=== PATIENT | male | born 1990 | race African-American/Black ===

== ENCOUNTER 2016-05-05 09:56 | Emergency (ER) | payer OTHER ==
[2016-05-05] MEDS ORDERED: methylPREDNISolone Sod Succ/PF 125 MG/2 ML VIAL ONE (10:16)
[2016-05-05] MEDS ORDERED: Sulfameth/Trimethoprim DS 800-160mg TAB ONE (10:16)
== END 2016-05-05 10:32 | disposition home or self-care (01) ==
LOC: BURERS 09:56
DX: J01.90 Acute sinusitis, unspecified (principal); F90.9 Attention-deficit hyperactivity disorder, unspecified type; F31.9 Bipolar disorder, unspecified
CPT/HCPCS: 96372; J2930

== ENCOUNTER 2017-03-04 20:04 | Emergency (ER) | payer OTHER ==
[2017-03-04] MEDS ORDERED: Benzonatate 100 MG CAP ONE (20:47)
[2017-03-04] MEDS ORDERED: Ondansetron ODT 4 MG TAB ONE (20:47)
== END 2017-03-04 20:53 | disposition home or self-care (01) ==
LOC: BURERS 20:04
DX: J20.9 Acute bronchitis, unspecified (principal); F90.9 Attention-deficit hyperactivity disorder, unspecified type; F31.9 Bipolar disorder, unspecified
CPT/HCPCS: 99283; Q0162

== ENCOUNTER 2017-06-11 10:25 | Emergency (ER) | payer OTHER | END 2017-06-11 13:01 | disposition home or self-care (01) | LOC: BURERS 10:25 | DX: J01.90 Acute sinusitis, unspecified (principal); F31.9 Bipolar disorder, unspecified; F90.9 Attention-deficit hyperactivity disorder, unspecified type | CPT/HCPCS: 99283; A4353 ==

== ENCOUNTER 2017-08-05 22:59 | Emergency (ER) | payer OTHER ==
[2017-08-05] MEDS ORDERED: Amoxicillin/Potassium Clav 875 MG TAB ONE (23:10)
[2017-08-05] MEDS ORDERED: Bacitracin Zinc 1 Packet ONE (23:12)
== END 2017-08-05 23:48 | disposition home or self-care (01) ==
LOC: BURERS 22:59
DX: S80.872A Other superficial bite, left lower leg, initial encounter (principal); F90.9 Attention-deficit hyperactivity disorder, unspecified type; F31.9 Bipolar disorder, unspecified; W54.0XXA Bitten by dog, initial encounter
CPT/HCPCS: 99283

== ENCOUNTER 2017-10-19 16:25 | Emergency (ER) | payer OTHER ==
[2017-10-19 17:08] LABS: #Basophils 0.1 thou/uL (0.0-0.2); #Eosinphils 0.3 thou/uL (0.0-0.7); #Lymphocytes 2.9 thou/uL (1.20-3.40); #Monocytes 0.6 thou/uL (0.11-0.59); #Neutrophils 5.3 thou/uL (1.40-6.50); %Basophils 0.8 % (0.0-1.0); %Eosinophils 3.2 % (0.0-10.0); %Lymphocytes 31.7 % (21.0-51.0); %Monocytes 6.1 % (0.0-10.0); %Neutrophils 58.2 % (42.0-75.0); Hemoglobin 14.2 g/dL (14.0-18.0); Mean Corpuscular HGB CONC 33.6 g/dL (32.0-36.0); Mean Corpuscular Hemoglobin 25.9 pg (27.0-31.0); Mean Corpuscular Volume 76.9 fL (78.0-98.0); Mean Platelet Volume 7.3 fL (7.4-10.4); Platelet Count 207 thou/uL (130-400); RBC Distribution Width 13.3 % (11.5-14.5); Red Blood Cell (RBC) Count 5.48 mill/uL (4.70-6.10)
[2017-10-19] MEDS ORDERED: Ondansetron ODT 4 MG TAB ONE (17:19)
[2017-10-19] MEDS ORDERED: Ondansetron HCl/PF 4 MG/2 ML Vial ONE (17:19)
[2017-10-19 17:26] LABS: ALT (SGPT) 23 U/L (8-55); AST (SGOT) 18 U/L (5-34); Albumin 4.3 g/dL (3.5-5.0); Alkaline Phosphatase 78 U/L (40-150); Anion Gap 14 mmol/L (10-20); BUN (Urea Nitrogen) 9 mg/dL (8.9-20.6); Bilirubin, Total 0.4 mg/dL (0.2-1.2); Calc. Creatinine Clearance 0 mL/min (70-130); Calcium 9.6 mg/dL (7.8-10.44); Carbon Dioxide 25 mmol/L (22-29); Chloride 107 mmol/L (98-107); Estimated GFR-MDRD 86; Globulin 3.3 g/dL (2.4-3.5); Glucose 68 mg/dL (70-105); Potassium 3.6 mmol/L (3.5-5.1); Protein, Total 7.6 g/dL (6.0-8.3); Sodium 142 mmol/L (136-145)
== END 2017-10-19 18:07 | disposition home or self-care (01) ==
LOC: BURERS 16:25
DX: K52.9 Noninfective gastroenteritis and colitis, unspecified (principal); F31.9 Bipolar disorder, unspecified; F90.9 Attention-deficit hyperactivity disorder, unspecified type
CPT/HCPCS: 80053; 85025; 96361; 96374; J2405; Q0162

== ENCOUNTER 2017-12-25 22:15 | Emergency (ER) | payer OTHER, SELFPAY ==
[2017-12-25] MEDS ORDERED: Ibuprofen 800 MG TAB ONE (22:32)
[2017-12-25] MEDS ORDERED: AMOXicillin 250 MG CAP ONE (22:32)
== END 2017-12-25 22:35 | disposition home or self-care (01) ==
LOC: BURERS 22:15
DX: K03.81 Cracked tooth (principal); K08.89 Other specified disorders of teeth and supporting structures; F31.9 Bipolar disorder, unspecified; F90.9 Attention-deficit hyperactivity disorder, unspecified type; F17.210 Nicotine dependence, cigarettes, uncomplicated
CPT/HCPCS: 99282

== ENCOUNTER 2024-04-25 14:24 | Emergency (ER) | payer BC, SELFPAY ==
[2024-04-25] MEDS ORDERED: Acetaminophen 500 MG TAB ONE (14:35)
== END 2024-04-25 15:25 ==
LOC: BURERS 14:24
DX: J10.1 Influenza due to other identified influenza virus with other respiratory manifestations (principal); F17.210 Nicotine dependence, cigarettes, uncomplicated
CPT/HCPCS: 87400; 87426; 99283

== ENCOUNTER 2025-03-25 20:12 | Emergency (ER) | payer BC ==
[2025-03-25 20:43] LABS: Glucose, Urine (Dipstick) Negative (Negative); Leukocyte Negative (Negative); Protein, Urine (Dipstick) Negative (Neg-Trace); Specific Gravity, Urine 1.025 (1.005-1.030)
[2025-03-25 20:58] LABS: Bacteria/HPF Rare-Few HPF (None Seen); CAUTI Indications for Culture Pelvic or flank pain; WBC/HPF None Seen HPF (0-3)
[2025-03-25 20:59] LABS: RBC/HPF 0-3 HPF (0-3)
[2025-03-25 21:00] LABS: Urine Culture Reflex No No
[2025-03-26 22:02] LABS: Chlam.trachomatis by PCR,Urine Not Detected (NotDetected); GC N.gonorrhoeae PCR,UrineVOID Not Detected (NotDetected)
== END 2025-03-25 20:56 | disposition home or self-care (01) ==
LOC: BURERS 20:12
DX: Z20.2 Contact with and (suspected) exposure to infections with a predominantly sexual mode of transmission (principal); I10 Essential (primary) hypertension
CPT/HCPCS: 81001; 87491; 87591; 99283